=== PATIENT | male | born 1975 | race Caucasian/White ===

== ENCOUNTER 2025-02-20 08:00 | Emergency (ER) | payer OTHER, SELFPAY ==
--- NOTE | ~2025-02-20 | XR_ITS ---
EXAMINATION: XR elbow RT min 3V DATE: 02/20/2025 10:03 INDICATION: Posterior right elbow pain and swelling post injury one day prior TECHNIQUE: Anteroposterior, two oblique and lateral views of the right elbow were obtained. COMPARISON: None. FINDINGS: Alignment is normal. No fracture or joint effusion. Mild osteoarthritis at the right elbow.. Likely c ontusion with minimal soft tissue swelling and subcutaneous stranding posterior to the elbow. IMPRESSION: 1. Mild osteoarthritis at the right elbow. No joint effusion or acute osseous abnormality. Reviewed, dictated and finalized at location A. IMPRESSION: 1. Mild osteoarthritis at the right elbow. No joint effusion or acute osseous a bnormality.
--- NOTE | 2025-02-20 08:07 | ED_ITS ---
HPI - Extremity Injury (Upper) General Chief Complaint: Extremity Injury, Upper Stated Complaint: RT elbow Pain Time Seen by Provider: 02/20/25 08:18 Source: patient, RN notes reviewed and old records reviewed Mode of arrival: ambulatory Limitations: no limitations History of Present Illness HPI narrative: 49-year-old male presents to the [facility] with right elbow bruising, swelling, tenderness and decreased range of motion. Patient states that yesterday he was starting a chainsaw at work when he pulled back in the elbow went into a metal man lift, a piece of heavy equipment reports tingling To the finger tips. has tried [id number] products with no relief MD complaint: injury to: right and elbow Onset (ago): day(s) (1) Related Data Allergies Allergy/AdvReac Type Severity Reaction Status Date / Time tomato Allergy Severe ITCHING Verified 05/03/17 13:58 Review of Systems 2 Review of Systems: All systems reviewed & are unremarkable except as noted in HPI and below Constitutional: Constitutional: Reports no additional constitutional complaints Musculoskeletal: Musculoskeletal: Reports as per HPI, Reports arthralgias, Reports joint swelling and Reports limited range of motion Integumentary/Breasts: Skin/Breast: Reports system reviewed and no additional complaints, except as docu PMFSH Family History Family History Mother Patient's mother is in good health Family history of arthritis Family history of heart disease in male family member before age 55 Father Patient's father is in good health Sibling Patient's sister is in good health Social History Social History Smoking status: Never smoker Alcohol intake: never Comments At the time of my signature, I reviewed and agree with the nursing past medical, surgical, social, and family history. There is no relevant family history pertinent to the patient complaint. Exam 2 Const: General: cooperative, healthy appearing, comfortable, no acute distress, well developed, alert and well nourished Nutritional Appearance: w ell nourished Orientation/consciousness: patient oriented x3 Limitations: no limitations HENMT: Head: normal to inspection Eyes: General: appearance normal, both eyes and all related structures A lignment and Position: alignment normal Neck: Neck: normal visual inspection, full ROM, no lymphadenopathy and no meningeal signs Chest: Chest palpation & inspection: normal inspection of the chest Resp: Effort & Inspection: normal respiratory effort and able to speak in complete sentences Cardio: Rate: regular rate Skin: General skin exam: normal color and no rashes or lesions noted Neuro: General: patient oriented x3, gait normal, moves all extremities and no meningeal signs Cognition (Neuro): normal cognition Speech: normal speech Gait exam (Neuro): Normal gait present Extrem: General: normal to inspection, full ROM, capillary refill normal and normal gait Right upper extremity: normal capillary refill, shoulder/upper arm normal to inspection and normal ROM; no tenderness and no swelling, elbow/forearm tenderness of the lateral epicondyle and of the radial head, swelling, abnormal ROM pain with active ROM during and with range as follows ( able to flex, unable to fully extend due to pain and swelling) and ecchymosis; no crepitus, no foreign bodies and no penetrating wound, wrist normal to inspection, normal ROM, normal vascular exam and radial pulse present; no tenderness and no swelling and Extremity exam: right hand normal to inspection, neuromotor exam normal wrist extension normal, thumb opposition normal, thumb IP flexion normal, thumb ADduction normal and fingers 2-5 ABduction normal and normal ROM of fingers Elbow/forearm/wrist images: 1. tender to palpation, ecchymosis and swelling is noted Psych: Appearance: grossly normal and well kempt Mental Status: mental status grossly normal Speech and movement: Normal speech and movement present and Clear speech present Affect: normal affect Attitude: cooperative Course Course Level of Care: Express Care Visit Vital Signs Vital signs: Vital Signs Temperature 97.0 F L 02/20/25 08:17 Pulse Rate 66 02/20/25 08:17 Respiratory Rate 18 02/20/25 08:17 Blood Pressure 129/90 02/20/25 08:17 Pulse Oximetry 99 02/20/25 08:17 Oxygen Delivery Room Air 02/20/25 08:17 Temperature 97.0 F L 02/20/25 08:17 Pulse Rate 66 02/20/25 08:17 Respiratory Rate 18 02/20/25 08:17 Blood Pressure 129/90 02/20/25 08:17 Pulse Oximetry 99 02/20/25 08:17 Oxygen Delivery Room Air 02/20/25 08:17 Reviewed MDM - Extremity Injury (Upper) MDM Narrative Medical decision making narrative: patient sitting in exam room. Nontoxic, vitals stable. Patient in no acute distress however elbow is uncomfortable, injury yesterday. bruising swelling noted. X-ray is negative for fracture patient appropriate for outpatient treatment with close follow-up Discharge instructions reviewed with patient, as well as provided in writing per nursing staff. The instructions also include specific and strict return/GO TO THE ER as well as f/u information. All questions have been answered, and the patient deny any further questions with discharge and discharge plan. Some parts of this dictation were generated by voice recognition software and may contain typographical and/or grammatical inaccuracies. Differential Diagnosis Differential diagnosis: Likely other (Contusion elbow, fracture elbow, sprain elbow) Imaging Data Radiologist's impression: EXAMINATION: XR elbow RT min 3V DATE: 02/20/2025 10:03 INDICATION: Posterior right elbow pain and swelling post injury one day prior TECHNIQUE: Anteroposterior, two oblique and lateral views of the right elbow were obtained. COMPARISON: None. FINDINGS: Alignment is normal. No fracture or joint effusion. Mild osteoarthritis at the right elbow.. Likely contusion with minimal soft tissue swelling and subcutaneous stranding posterior to the elbow. IMPRESSION: 1. Mild osteoarthritis at the right elbow. No joint effusion or acute osseous abnormality. 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 Ice should be applied to help reduce swelling. It can be used for 20 to 30 minutes, every 2-3 hours while awake. Do not apply ice directly to your skin. Dwayne wrap or a pull on brace should be worn during the day for extra support. You can alternate ibuprofen 600mg and Tylenol 650mg every 4 hours as needed for pain Please schedule a follow-up visit with your personal physician for further evaluation and treatment within 2 weeks especially if symptoms persist. Follow-up with your occupational health provider. For new or worsening symptoms go directly to the emergency room Patient Language: Macanese Prescriptions: New ibuprofen 600 mg tablet 600 mg PO TID PRN (Reason: fever or pain) Qty: 30 0RF Follow-up/Referrals: Johanna,Muriel Sethi MD [Primary Care Provider] - Stand Alone Forms: Work/School Release IP
--- OUTSIDE RECORDS SUMMARY | 2025-02-20 08:08 | XMS_ITS | Continuity of Care Document ---
Author Organization [facility] Address [address] [place] [address] Phone Care Team Providers Care Workflow Developer Name Role Phone Gutierrez Pagan MD Unavailable Unavailable Allergies, Adverse Reactions, Alerts Substance Reaction Status Criticality No Known Allergies Active No Inform ation Medications Medication Instructions Dosage Effective Dates (start - stop) Status Comments meloxicam 15 mg tablet take 1 tablet (15MG) by oral route every day with food - Active hydrocodone 7.5 mg-acetaminophen 325 mg tablet - Active Procedures Procedure Date POSTOP FOLLOW-UP VISIT POSTOP FOLLOW-UP VISIT POSTOP FOLLOW-UP VISIT POSTOP FOLLOW-UP VISIT RADEX ELBW COMPL MINIMUM 3 VIEWS 2016 OFFICE/OUTPATIENT VISIT EST OFFICE/OUTPATIENT VISIT EST MRI ANY JT UXTR C-MATRL MRI SPI CANAL&CNTS CRV C-MATRL 17 OFFICE/OUTPATIENT VISIT NEW Advance Directives Directive Yes / No Effective Date File Name No Information Encounters Encounter Description Practice Location Reason(s) For Visit Diagnoses Date Provider Providers Copied on Encounter [facility], [address] [facility] [facility], [place], [address], [place] tel:[phone] [facility] Carpal tunnel syndrome on leftCubital tunnel syndrome on left 8 Latasha [address]. [address] [place], [place], [id number]. tel:[phone] [facility], [address] [address], [place], [address], [place] tel:[phone] [facility] Cubital tunnel syndrome on leftCarpal tunnel syndrome on left 8 Latasha Whitley. [address] , [place], [place], [id number]. tel:[phone] Referring Provider: Gutierrez Pagan, [address] [facility] [address], [place], [address] . tel:[phone] [facility], [address] [address], [place], [address], [place] tel:[phone] [facility] Carpal tunnel syndrome on leftCubital tunnel syndrome on left 7 Latasha Whitley. [address] [facility], [place], [place], [address]. tel:[phone] [facility], [address] [address], [place], [address], [place] tel:[phone] [facility] Cubital tunnel syndrome on leftCarpal tunnel syndrome on left 7 Latasha Whitley. [address] [facility], [place], [place], [address]. tel:[phone] OFFICE/OUTPA TIENT VISIT EST [facility], [address] [address], [place], [address], [place] tel:[phone] [facility] Left elbow painBody mass index (BMI) 38.0-38.9, adultTobacco useCarpal tunnel syndrome on leftCubital tunnel syndrome on left 7 Latasha Whitley. [address] [facility], [place], [place], [address]. tel:[phone] Referring Provider: Evaristo Sewell, [address] [facility] [place], [address] . tel:[phone] OFFICE/OUTPA TIENT VISIT EST [facility], [address] [address], [place], [address], [place] tel:[phone] [facility] Cubital tunnel syndrome on leftCarpal tunnel syndrome on leftProtrusion of cervical intervertebral disc Sep-2 7 Donato Loera. [address] [place], [place], [address]. tel:[phone] [facility], [address], [facility], tel:[phone] [facility] No Information Sep-0 7 No Information Referring Provider: Evaristo Sewell, [address] [place], [address] . tel:[phone] [facility], [address], [facility], tel:[phone] [facility] Cervicalgia Sep-0 7 No Information Referring Provider: Evaristo Sewell, [address] [place], [address] . tel:[phone] OFFICE/OUTPA TIENT VISIT NEW [facility], [address], [facility], tel:[phone] [facility] Body mass index (BMI) 39.0-39.9, adultAcute pain of left shoulder Sep-0 7 Donato Loera. [address] [place], [place], [address]. tel:[phone] Family History Family Member Type Diagnosis Age At Onset Mother Problem (finding) Cardiovascular disease Father Problem (finding) Cancer, unknown Payers Payer name Insurance type Covered green party ID Loni banerjee(s) Blue Access Choice PPO E2 OT [id number] Social History Type Description Quantity Date Captured Comments Alcohol Use Details Unknown Caffeine Use Details Unknown Tobacco Use Status Smoking Status Current some day smoker 018 Sex Male Chief Complaint And Reason For Visit No Information Reason For Referral Reason For Referral No Information Plan Of Treatment Date Type Action Status Goal Smoking cessation education completed Goal Tobacco cessation counseling completed Goal Smoking effects education co mpleted Referral Ordered: RADEX ELBW COMPL MINIMUM 3 VIEWS LT ordered Referral Ordered: referred to Gutierrez Pagan MD (related to Carpal tunnel syndrome on left) ordered Referral Ordered: referred to Beka Dumont MD (related to Protrusion of cervical intervertebral disc) ordered Referral Ordered: MRI ANY JT UXTR C-MATRL LT shoulder ordered Referral Ordered: MUSCLE TEST 2 LIMBS Bilateral arm Appointment date/timeframe: 08/03/2017 ordered Referral Ordered: MRI SPI CANAL&CNTS CRV C-MATRL spine, cervical Appointment date/timeframe: 07/30/2017 ordered History Of Present Illness Encounter Date Complaint History Of Prese nt Illness No Information Functional Status Date Functional Assessmen t Pain Score 2/10 Instructions Date Instruction Additional Infor mation Activity as tolerated. Related t o Carpal tunnel syndrome on left Activity as tolerated. Related t o Cubital tunnel syndrome on left Activity as tolerated. Related t o Cubital tunnel syndrome on left Giving encouragement to exercise Related to Body mass index (BMI) 38.0-38.9, adult Giving encouragement to exercise Related to Body mass index (BMI) 38.0-38.9, adult Discussed treatment options Rela francine to Acute pain of left shoulder Call for increase in pain Relate d to Acute pain of left shoulder Assessments Type Assessment Date assessment Carpal tunnel syndrome on left F assessment Cubital tunnel syndrome on left Patient Care Teams Name Effective Dates (start - stop) Status Members No Information
--- OUTSIDE RECORDS SUMMARY | 2025-02-20 08:12 | XMS_ITS | Continuity of Care Document ---
Author Organization [facility] Address [address] [place] [address] Phone Care Team Providers Care Stock Layer Name Role Phone Gutierrez Pagan MD Unavailable [...] Providers Copied on Encounter [facility], [address] [facility], [place], [address], [place] tel:[phone] [facility] Carpal tunnel syndrome on leftCubital tunnel syndrome on left 8 Latasha Whitely. [address], [place], [address]. tel:[phone] [facility], [address] [address], [place], [address], [place] tel:[phone] [facility] Cubital tunnel syndrome on leftCarpal tunnel syndrome on left 8 Latasha Whitley. [address] , [place], [place], [address]. tel:[phone] Referring Provider: Gutierrez Pagan, [address] [facility] [address], [place], [address] . tel:[phone] [facility], [address] [address], [place], [address], [place] tel:[phone] [facility] Carpal tunnel syndrome on leftCubital tunnel syndrome on left 7 Latasha Whitley. [address] [facility], [place], [place], [address]. tel:[phone] [facility], [address] [address], [place], [address], [place] tel:[phone] [facility] Cubital tunnel syndrome on leftCarpal tunnel syndrome on left 7 Latasha Whitley. [address] [facility], [place], [place], [address]. tel:[phone] OFFICE/OUTPA TIENT VISIT EST [facility], [address] [address], [place], [address], [place] tel:[phone] [facility] Left elbow painBody mass index (BMI) 38.0-38.9, adultTobacco useCarpal tunnel syndrome on leftCubital tunnel syndrome on left 7 Latasha Whitley. [address] [facility], [place], [place], [address]. tel:[phone] Referring Provider: Evaristo Sewell, [address] [facility], [place], [address] . tel:[phone] OFFICE/OUTPA TIENT VISIT EST [facility], [address] [address], [place], [address], [place] tel:[phone] [facility] Cubital tunnel syndrome on leftCarpal tunnel syndrome on leftProtrusion of cervical intervertebral disc Sep-2 7 Donato Loera. [address] [place], [place], [address]. tel:[phone] [facility], [address], [facility], tel:[phone] [facility] No Information Sep-0 7 No Information Referring Provider: Evaristo Sewell, [address] [place], [address] . tel:[phone] [facility], [address], [facility], tel:[phone] [facility] Cervicalgia Sep-0 7 No Information Referring Provider: Evaristo Sewell, [address] [place], [address] . tel:[phone] OFFICE/OUTPA TIENT VISIT NEW [facility], [address], [facility], tel:[phone] [facility] Body mass index (BMI) 39.0-39.9, adultAcute pain of left shoulder Sep-0 7 Donato Loera. [address] [place], [place], [address]. tel:[phone] Family History Family Member Type Diagnosis Age At Onset Mother Problem (finding) Cardiovascular disease Father Problem (finding) Cancer, unknown Payers Payer name Insurance type Covered democrat ID Loni banerjee(s) Blue Access Choice PPO E2 OT [id number] Social History Type Description Quantity Date Captured [...]
[2025-02-20 08:17] VITALS: BP 129/90; PULSE 66; RESP 18; TEMP 36.1; O2SAT 99
== END 2025-02-20 10:49 | disposition home or self-care (01) ==
PROVIDERS: Emergency Provider Nurse Practitioner; PCP Family Medicine
DX: S50.01XA Contusion of right elbow, initial encounter (principal); W22.8XXA Striking against or struck by other objects, initial encounter; Y99.0 Civilian activity done for income or pay; M19.021 Primary osteoarthritis, right elbow
CPT/HCPCS: 73080; 99213; G0463